=== PATIENT | female | born 2000 | race African-American/Black ===

== ENCOUNTER 2019-06-09 00:45 | Emergency (ER) | payer OTHER ==
--- NOTE | 2019-06-09 01:01 | ED ---
Substance Abuse/Use - HPI Summary HPI Summary: This patient is a 18 year old F brought in by police as a 941 to [facility] with a chief complaint of alcoholic intoxication [employer]. The pt states that she is too drunk and just want to sleep. Pt denies any fever, chills, erythema of eyes, sore throat, CP, SOB, cough, abdominal pain, N/V, dysuria, hematuria, myalgia, edema, rash, or dizziness. She has no alleviating factors. - History Of Current Complaint Chief Complaint: EDOverdose Stated Complaint: 2209 PER POL[employer] Time Seen by Provider: 06/09/19 00:48 Hx Obtained From: Patient Onset/Duration of Drug/ETOH Abuse: Hours Severity Initially: Moderate Severity Currently: Moderate Character: Lethargic Aggravating Factor(s): Nothing Alleviating Factor(s): Nothing Associated Signs And Symptoms: Negative - fever, chills, erythema of eyes, sore throat, CP, SOB, cough, abdominal pain, N/V, dysuria, hematuria, myalgia, edema , rash, or dizziness., Intentional Ingestion - Allergies/Home Medications Home Medications: Home Medications NK [No Home Medications Reported] 06/09/19 [History Confirmed 06/09/19] PMH/Surg Hx/FS Hx/Imm Hx Previously Healthy: Yes Infectious Disease History: No Infectious Disease History: Denies: Traveled Outside the [place] in Last 30 Days Review of Systems Positive: Other - ETOH intoxication. Negative: Fever, Skin Diaphoresis Negative: Erythema Negative: Sore Throat Negative: Chest Pain Negative: Shortness Of Breath, Cough Negative: Abdominal Pain, Vomiting, Nausea Negative: dysuria, hematuria Negative: Myalgia, Edema Negative: Rash Neurological: Negative - dizziness All Other Systems Reviewed And Are Negative: Yes Physical Exam - Summary Physical Exam Summary: VITAL SIGNS: Reviewed. GENERAL: Patient is a well-developed and nourished female who is lying comfortable in the stretcher. Patient is not in any acute respiratory distress. HEAD AND FACE: No signs of trauma. No ecchymosis, hematomas or skull depressions. No sinus tenderness. EYES: PERRLA, EOMI x 2, No injected conjunctiva, no nystagmus. EARS: Hearing grossly intact. Ear canals and tympanic membranes are within normal limits. MOUTH: Oropharynx within normal limits. NECK: Supple, trachea is midline, no adenopathy, no JVD, no carotid bruit, no c- spine tenderness, neck with full ROM CHEST: Symmetric, no tenderness at palpation LUNGS: Clear to auscultation bilaterally. No wheezing or crackles. CVS: Regular rate and rhythm, S1 and S2 present, no murmurs or gallops appreciated. ABDOMEN: Soft, non-tender. No signs of distention. No rebound no guarding, and no masses palpated. Bowel sounds are normal. EXTREMITIES: FROM in all major joints, no edema, no cyanosis or clubbing. NEURO: Alert and oriented x 3. No acute neurological deficits. Speech is normal and follows commands. SKIN: Dry and warm Triage Information Reviewed: Yes Vital Signs On Initial Exam: Initial Vitals Temp Pulse Resp BP Pulse Ox 98.0 F 70 18 110/54 98 06/09/19 00:48 06/09/19 00:48 06/09/19 00:48 06/09/19 00:48 06/09/19 00:48 Vital Signs Reviewed: Yes Diagnostics - Vital Signs Vital Signs Temp Pulse Resp BP Pulse Ox 06/09/19 00:48 98.0 F 70 18 110/54 98 - Laboratory Lab Statement: Any lab studies that have been ordered have been reviewed, and results considered in the medical decision making process. Course/Dx - Course Course Of Treatment: This patient is a 18 year old F brought in by police as a 941 to [facility] with a chief complaint of alcoholic intoxication [employer]. She stated that she "drank too much and want to sleep". She is awake and alert on her PE. Pt was alert and oriented at 0414. She will be discharged home with a Dx of ETOH intoxication. - Diagnoses Provider Diagnoses: Alcohol intoxication Discharge - Sign-Out/Discharge Documenting (check all that apply): Patient Departure - discharge Patient Received Moderate/Deep Sedation with Procedure: No - Discharge Plan Condition: Stable Disposition: HOME Patient Education Materials: Alcohol Intoxication (ED) Referrals: [facility] [Outside] Additional Instructions: Return to the emergency department for any new or worsening symptoms. Follow up with [facility] within 2 days. - Attestation Statements Document Initiated by Scribe: Yes Documenting Scribe: Benja Wild Provider For Whom Scribe is Documenting (Include Credential): Ca Espino MD Scribe Attestation: Benja Padilla, scribed for Ca Espino MD on 06/09/19 at 0414. Status of Scribe Document: Ready
[2019-06-09 04:44] VITALS: BP 127/78
== END 2019-06-09 04:44 | disposition home or self-care (01) ==
LOC: ED 00:45
DX: F10.129 Alcohol abuse with intoxication, unspecified (principal)
CPT/HCPCS: 99283